=== PATIENT | male | born 1960 | race Caucasian/White ===

== ENCOUNTER 2018-02-10 20:16 | Emergency (ER) | payer BC, SELFPAY ==
[2018-02-10 20:12] VITALS: BP 133/90; PULSE 81; RESP 16; TEMP 37; O2SAT 95
[2018-02-10 20:22] VITALS: RESP 18
--- NOTE | 2018-02-10 20:40 | ED.GENADUL_ITS ---
Discharge Plan Disposition Patient Disposition: HOME Condition: Good Discharge Details Chief Complaint: GenMedical Clinical Impression: Abdominal cramping, Vasovagal near syncope Reason For Visit: GEOFF Primary Care Provider: Verna Joshi ED Provider: Aidan Sweeney Meds and New Rx's Prescriptions: Continue bimatoprost 2.5 ML drops 1 drp OU DAILY Qty: 2.5 RF: 12 hydrochlorothiazide 25 MG tablet 25 mg PO DAILY Qty: 90 RF: 3 nabumetone 750 MG tablet 375 mg PO DAILY Qty: 180 RF: 3 Discharge Instructions Instructions: Near Syncope (ED) Additional Instructions: Would stick with liquid/bland diet for now. Near fainting probably related to vagal episode like we talked about. Follow up with PCP next week if not feeling better. Return to ED for chest pain, fainting, persistent abdominal pain, persistent vomiting, shortness of breath. Referrals: Verna Joshi, ENGINEERING OFFICER [Primary Care Provider] - Discharge Data Discharge Date/Time-TO BE ENTERED AT DEPARTURE: 02/10/18 21:49 Medical Decision Making Patient is asymptomatic in ED. Abdomen is benign and no further cramping. Suspect the lightheaded event was related to vagal episode. EKG without acute changes, left axis only. Patient observed in ED and given oral challenge with no recurrent symptoms. No chest pain or shortness of breath or syncope. Did not pursue imaging or labs. Discharged home. ECG Data Attestation: I personally reviewed and interpreted this ECG (s) as follows: Prior ECG tracings: not available for review Interpretation: Sinus rhythm at 90 with normal intervals but left axis. No ST changes. HPI General Mode of arrival: EMS . Date/Time Provider Initiated Documentation: 02/10/18 20:24 . Limitations to Documentation: no limitations . Information obtained by: patient . HPI Narrative: Patient presents to ED with near syncope. Patient has had a head cold with some congestion and sore throat, slight cough for couple of days but nothing major. Tonight after eating dinner he developed sharp intermittent cramping abdominal pain. He felt like he needed to have a BM and went to bathroom. He was unable to have BM and then developed some nausea and thought he was going to vomit. He became sweaty and lightheaded but did not pass out. His abdominal cramping has since resolved after about 30 minutes. He did not have chest pain/pressure and no shortness of breath. He currently feels back to normal for the most part other then the congestion in his head. Related Data Home Medications Medication Instructions Recorded Confirmed bimatoprost 1 drp OU DAILY #2.5 ml 03/09/17 02/10/18 hydrochlorothiazide 25 mg PO DAILY #90 tab-cap 09/12/17 02/10/18 nabumetone 375 mg PO DAILY #180 tab-cap 11/07/17 02/10/18 Previous Rx's Medication Instructions Recorded bimatoprost 1 drp OU DAILY #2.5 ml 03/09/17 hydrochlorothiazide 25 mg PO DAILY #90 tab-cap 09/12/17 nabumetone 375 mg PO DAILY #180 tab-cap 11/07/17 Allergies Allergy/AdvReac Type Severity Reaction Status Date / Time No Known Allergies Allergy Unverified 02/10/18 20:16 General Stated Complaint: GenMedical LEORA: 3 Review of Systems Constitutional Denies chills, Denies fatigue, Denies fever(s), Denies headache(s) and Denies malaise Eyes Denies eye discharge and Denies irritation ENT Denies dizziness, Denies otalgia, Denies headache(s), Reports nasal congestion, Denies neck pain, Reports sinus pressure and Reports sore throat Cardiovascular Denies chest pain, Reports diaphoresis, Denies syncope, Denies rapid heart rate , Denies pedal edema, Denies edema, Reports lightheadedness and Denies dyspnea Respiratory Reports cough and Denies dyspnea Gastrointestinal Denies constipation, Reports cramping, Denies diarrhea, Reports nausea and Denies vomiting Musculoskeletal Denies back pain, Denies myalgias, Denies arthralgias, Denies neck pain and Denies numbness Integumentary/Breasts Denies rash Neurologic Denies confusion, Denies dizziness, Denies syncope, Denies headache(s), Denies focal weakness and Denies numbness Psychiatric Denies confusion Endocrine Denies fatigue PFSH Family History Other Prostate CA Medical History HTN (hypertension) (Chronic) Social History Smoking/Tobacco Use Status: Never Surgical History Rotator Cuff Repair (~2007) Exam Const General: cooperative, healthy appearing, comfortable and no acute distress Orientation: alert and oriented x3 HENMT Head: normocephalic Mouth: moist mucous membranes Neck Neck: normal visual inspection, trachea midline and supple Resp Effort & Inspection: normal respiratory effort Auscultation: clear to auscultation bilaterally Cardio Rate: regular rate Rhythm: regular rhythm Heart Sounds: S1 normal and S2 normal Pulses: radial pulses present GI Palpation: soft, not firm, no guarding and nontender Skin General skin exam: no rashes or lesions noted Neuro General: alert, oriented x3, no focal motor deficits and CN's II-XI intact bilaterally Sensory Exam: no sensory deficits noted Extrem General: normal to inspection and full ROM Course Vital Signs Temperature 98.6 F 02/10/18 20:12 Pulse 81 02/10/18 20:12 Respiratory Rate 16 02/10/18 20:12 Blood Pressure 133/90 02/10/18 20:12 Pulse Oximetry 95 02/10/18 20:12 Temperature 98.6 F 02/10/18 20:12 Temperature Source Temporal Artery Scan 02/10/18 20:12 Pulse 81 02/10/18 20:12 Respiratory Rate 18 02/10/18 20:22 Respiratory Effort Non-Labored 02/10/18 20:22 Respiratory Depth Normal 02/10/18 20:22 Respiratory Pattern Normal 02/10/18 20:22 Blood Pressure 133/90 02/10/18 20:12 Blood Pressure Position Supine 02/10/18 20:12 Pulse Oximetry 95 02/10/18 20:12 Pain Level 0 02/10/18 20:12
[2018-02-10 21:27] VITALS: BP 120/72; PULSE 90; RESP 18; TEMP 36.5; O2SAT 97
== END 2018-02-10 21:49 | disposition home or self-care (01) ==
LOC: ER 21:53
PROVIDERS: Emergency Provider Emergency Medicine; PCP Nurse Practitioner
DX: R55 Syncope and collapse (principal); R10.9 Unspecified abdominal pain; I10 Essential (primary) hypertension
CPT/HCPCS: 93005; 99283; 93010

== ENCOUNTER 2019-02-05 07:27 | Outpatient (CLI) | payer BC, SELFPAY ==
[2019-02-05 08:59] LABS: ALT 31 U/L (16-63); AST 27 U/L (15-37); Albumin 3.9 g/dL (3.4-5.0); Alkaline Phosphatase 55 U/L (46-116); BUN 13 mg/dL (7-18); Bilirubin, Total 0.7 mg/dL (0.2-1.0); CREATININE 0.84 mg/dL (0.70-1.30); Calcium 9.1 mg/dL (8.5-10.1); Calculated LDL 119 mg/dL; Chloride 104 mmol/L (98-107); Cholesterol 180 mg/dL (50-200); Glucose 92 mg/dL (70-100); HDL Cholesterol 46 mg/dL (40-60); Potassium 4.1 mmol/L (3.5-5.1); Sodium 142 mmol/L (136-145); Triglyceride 75 mg/dL (30-150)
[2019-02-06 10:08] LABS: PSA, Screening 0.8 ng/ml (0-3.5)
== END 2019-02-05 07:47 ==
PROVIDERS: PCP Nurse Practitioner; Visit Provider Nurse Practitioner
DX: I10 Essential (primary) hypertension (principal); Z12.5 Encounter for screening for malignant neoplasm of prostate; Z80.42 Family history of malignant neoplasm of prostate
CPT/HCPCS: 36415; 80053; 80061; 84153

== ENCOUNTER 2020-02-13 01:33 | Outpatient (CLI) | payer BC, SELFPAY ==
[2020-02-13 08:21] LABS: ALT 30 U/L (16-63); AST 20 U/L (15-37); Alkaline Phosphatase 62 U/L (46-116); Anion Gap 4.7 mmol/L (3-11); BUN 14 mg/dL (7-18); Bilirubin, Total 0.5 mg/dL (0.2-1.0); CO2 33.3 mmol/L (21.0-32.0); CREATININE 0.88 mg/dL (0.70-1.30); Calcium 9.1 mg/dL (8.5-10.1); Calculated LDL 130 mg/dL (<100); Chloride 104 mmol/L (98-107); Cholesterol 193 mg/dL (<200); Glucose 94 mg/dL (74-106); HDL Cholesterol 48 mg/dL (40-60); Potassium 4.3 mmol/L (3.5-5.1); Sodium 142 mmol/L (136-145); Triglyceride 78 mg/dL (<150)
[2020-02-13 18:11] LABS: PSA, Screening 0.6 ng/mL (0.0-4.5)
== END 2020-02-13 01:53 ==
PROVIDERS: PCP Nurse Practitioner; Visit Provider Nurse Practitioner
DX: I10 Essential (primary) hypertension (principal); Z12.5 Encounter for screening for malignant neoplasm of prostate; Z80.42 Family history of malignant neoplasm of prostate
CPT/HCPCS: 36415; 80053; 80061; 84153

== ENCOUNTER 2020-09-14 17:28 | Emergency (ER) | payer BC, SELFPAY ==
[2020-09-14 17:37] VITALS: BP 139/101; PULSE 82; RESP 16; TEMP 36.7; O2SAT 96
--- NOTE | 2020-09-14 17:49 | ED.GENADUL_ITS ---
Discharge Plan Disposition Patient Disposition: HOME Condition: Stable Discharge Details Clinical Impression: Laceration of hand, left Primary Care Provider: Verna Joshi ED Provider: Anthony Velazquez Home Meds and New Rx's Prescriptions: Continued mometasone 0.1 % cream 1 applic TP DAILY PRN (Reason: skin irritation) Qty: 15 RF: 1 cyclobenzaprine 10 mg tablet 10 mg PO HS PRN (Reason: muscle spasm) Qty: 30 RF: 0 methylprednisolone [Medrol (Rigo)] 4 mg tablets,dose pack See Rx Instructions .Route .COMPLEX Qty: 21 RF: 0 bimatoprost 2.5 ML drops 1 drp OU DAILY Qty: 2.5 RF: 12 betamethasone, augmented [Diprolene (augmented)] 0.05 % ointment 1 applic TP QHS RF: 0 fluocinolone [Synalar] 0.01 % solution 1 applic TP BID RF: 0 mometasone [Elocon] 0.1 % cream 1 applic TP DAILY RF: 0 hydrochlorothiazide 25 mg tablet 25 mg PO DAILY Qty: 90 RF: 3 nabumetone 750 mg tablet 375 mg PO DAILY Qty: 180 RF: 3 Discharge Instructions Instructions: Laceration (ED) Additional Instructions: return in 7-10 days for suture removal and sooner if signs of infection such as spreading redness or yellow/white discharge Medical Decision Making 60 yo male was trying to take the front bucket off his tractor and his left hand got stuck between it and a pole, no falls or other trauma. Has no pain but has a 1cm laceration on anterior and posterior hand just proximal to the thumb. Full range of motion of the finger with normal sensation and pulses and no bony tenderness. No palpable foreign bodies and given no significant pain do not feel xray indicated as chance of foreign body with mechanism is low and no indication for fracture. Will place sutures and likely discharge 2 sutures placed in both wounds after copious irrigation without compliation, will d/c home Differential Diagnosis Differential Diagnosis: laceration, abrasion, contusion HPI General Mode of arrival: ambulatory . Date/Time Provider Initiated Documentation: 09/14/20 17:31 . Limitations to Documentation: no limitations . Information obtained by: patient . History of Present Illness 60 year old M presents to the emergency department with the chief complaint of left hand laceration, described as moderate, Quality is described as aching, Patient started experiencing this hour(s) (1) and it has been constant. No relieving factors improve symptom(s), No exacerbating factors reported . Patient notes no other symptoms.. Patient did receive the following treatments prior to arrival, none Related Data Home Medications Medication Instructions Recorded Confirmed bimatoprost 1 drp OU DAILY #2.5 ml 03/09/17 09/14/20 mometasone 0.1 % topical cream 1 applic TP DAILY PRN #15 gm 10/15/18 09/14/20 betamethasone, augmented 0.05 % 1 applic TP QHS 01/28/19 09/14/20 topical ointment fluocinolone 0.01 % topical 1 applic TP BID 01/28/19 09/14/20 solution mometasone 0.1 % topical cream 1 applic TP DAILY 01/28/19 09/14/20 hydrochlorothiazide 25 mg tablet 25 mg PO DAILY #90 tab-cap 11/01/19 09/14/20 nabumetone 750 mg tablet 375 mg PO DAILY #180 tab-cap 12/17/19 09/14/20 cyclobenzaprine 10 mg tablet 10 mg PO HS PRN #30 tab 09/10/20 09/14/20 methylprednisolone 4 mg tablets in See Rx Instructions .ROUTE 09/10/20 09/14/20 a dose pack .COMPLEX #21 dose pk Previous Rx's Medication Instructions Recorded bimatoprost 1 drp OU DAILY #2.5 ml 03/09/17 mometasone 0.1 % topical cream 1 applic TP DAILY PRN #15 gm 10/15/18 hydrochlorothiazide 25 mg tablet 25 mg PO DAILY #90 tab-cap 11/01/19 nabumetone 750 mg tablet 375 mg PO DAILY #180 tab-cap 12/17/19 cyclobenzaprine 10 mg tablet 10 mg PO HS PRN #30 tab 09/10/20 methylprednisolone 4 mg tablets in See Rx Instructions .ROUTE 09/10/20 a dose pack .COMPLEX #21 dose pk Allergies Allergy/AdvReac Type Severity Reaction Status Date / Time No Known Allergies Allergy Verified 09/14/20 17:36 General Stated Complaint: Laceration LEORA: 4 Review of Systems All systems reviewed & are unremarkable except as noted in HPI and below Constitutional Constitutional: Denies chills, Denies fever(s) and Denies weakness Cardiovascular Cardiovascular: Denies chest pain and Denies dyspnea Respiratory Respiratory: Denies cough and Denies dyspnea Gastrointestinal Gastrointestinal: Denies abdominal pain, Denies nausea and Denies vomiting Musculoskeletal Musculoskeletal: Denies joint swelling Neurologic Neurologic: Denies weakness [facility] Medical History (Updated 09/14/20 @ 18:10 by Anthony Velazquez MD) Elevated PSA (~2012) Surgical History (Updated 11/06/19 @ 15:48 by Kassidy Phelps) S/P rotator cuff repair (~2007) Family History (Updated 01/10/19 @ 08:27 by Tea Wahl RN) Father Prostate cancer Hypertension Brother Prostate cancer Paternal Grandfather Alcohol abuse Mother Breast cancer Social History (Updated 01/10/19 @ 08:29 by Tea Wahl RN) Smoking/Tobacco Use Status: Never Smoking risk assessment performed?: Yes Alcohol Intake: never Drug use: Never Adopted: No Household members: spouse Number of Children: 0 Communication Needs: Corrective Lenses Do you need help understanding health information?: Rarely Pets and animals: Yes Do you think of yourself as: straight/heterosexual What is your relationship status?: Panel score (0-1 are the most socially isolated patients): 1 What type of physical activity do you participate in: none Seatbelt use: always Helmet use: Yes Drive intox or ride w/intox mobile lounge driver: No Water heater temp set <120 deg: Yes Working smoke detector in home: Yes Fire extinguisher in home: Yes Carbon monox detector in home: Yes Firearms in home: Yes Firearms unloaded and locked: Yes Do you feel safe at home: Yes Do you feel safe in your relationship?: Yes Victim of physical abuse: No Victim of emotional abuse: No Victim of sexual abuse: No Exam Const General: no acute distress Orientation: alert HENMT Head: normal to inspection Ears: external ears normal General nose exam: external nose normal Mouth: moist mucous membranes Eyes General: appearance normal, both eyes and all related structures Neck Neck: normal visual inspection Resp Effort & Inspection: normal respiratory effort and able to speak in complete sentences Cardio Rate: regular rate Skin General skin exam: no rashes or lesions noted Neuro General: patient alert and patient oriented x3 Extrem General: full ROM and capillary refill normal Psych Mental Status: mental status grossly normal Course Vital Signs Vital signs: Vital Signs Temperature 36.7 C 09/14/20 17:37 Pulse 82 09/14/20 17:37 Respiratory Rate 16 09/14/20 17:37 Blood Pressure 139/101 H 09/14/20 17:37 Pulse Oximetry 96 09/14/20 17:37 Temperature 36.7 C 09/14/20 17:37 Temperature Source Temporal Artery Scan 09/14/20 17:37 Pulse 82 09/14/20 17:37 Respiratory Rate 16 09/14/20 17:37 Respiratory Effort Non-Labored 09/14/20 17:40 Blood Pressure 139/101 H 09/14/20 17:37 Blood Pressure Position Sitting 09/14/20 17:37 Pulse Oximetry 96 09/14/20 17:37 Oxygen Delivery Method Room Air 09/14/20 17:37 Oxygen Flow Rate 0 09/14/20 17:37 Pain Level 3 09/14/20 17:43 Procedures Laceration Laceration 1: Site: hand Side (If applicable): left Size (cm): 1 Description: linear Depth: simple, single layer Local Anesthetic: Lidocaine 2% Amount of anesthesia used (mL): 3 Pre-repair: wound explored and irrigated extensively Skin layer closed with: nylon Size (cm): 5-0 Number of sutures: 2 Technique: simple, interrupted Laceration 2: Site: hand Side (If applicable): left Size (cm): 1 Description: linear Depth: simple, single layer Local Anesthetic: Lidocaine 2% Amount of anesthesia used (mL): 2 Pre-repair: wound explored and irrigated extensively Skin layer closed with: nylon Size (cm): 5-0 Number of sutures: 2 Technique: simple, interrupted
== END 2020-09-14 18:24 | disposition home or self-care (01) ==
PROVIDERS: Emergency Provider Emergency Medicine; PCP Nurse Practitioner
DX: S67.22XA Crushing injury of left hand, initial encounter (principal); S61.412A Laceration without foreign body of left hand, initial encounter; W23.1XXA Caught, crushed, jammed, or pinched between stationary objects, initial encounter
CPT/HCPCS: 12001; 90471

== ENCOUNTER 2020-09-17 01:25 | Outpatient (CLI) | payer BC, SELFPAY ==
--- NOTE | 2020-09-17 07:15 | DI.RAD_ITS ---
Exam(s) XR CERVICAL SPINE COMP 4-5V EXAM: XR CERVICAL SPINE COMP 4-5V CLINICAL HISTORY: Pain right posterior neck approx 3-4 mos,MUSCLE SPASM,M62.838,M54.2. TECHNIQUE: 2D digital imaging was performed. COMPARISON: No exams were available for comparison FINDINGS: There is no evidence of fracture, listhesis, nor offset of the spinal laminar line. There is moderat e disc space narrowing at C4-5, C5-6, and C6-7 levels. Calcification is noted in the supraspinous li gament at C 7-T1 level. Mild facet arthropathy changes noted, most evident at C2-3 level. No cervic al ribs. Vascular calcification the carotid arteries on both sides of neck noted. IMPRESSION: Degenerative disc disease. If clinically indicated follow-up MRI can be performed. Vascular calcification in the carotid arteries noted, indicating atherosclerotic involvement. DATA REPOSITORY: RADIATION DOSE DELIVERED:
== END 2020-09-17 01:45 ==
PROVIDERS: PCP Nurse Practitioner; Visit Provider Nurse Practitioner
DX: M54.2 Cervicalgia (principal); M62.838 Other muscle spasm; M50.321 Other cervical disc degeneration at C4-C5 level; M50.322 Other cervical disc degeneration at C5-C6 level; M50.323 Other cervical disc degeneration at C6-C7 level
CPT/HCPCS: 72050

== ENCOUNTER 2020-12-26 14:32 | Emergency (ER) | payer BC, SELFPAY ==
[2020-12-26] VITALS (23 sets, daily range): BP systolic 127–165; BP diastolic 75–103; PULSE 74–100; RESP 7–22; TEMP 36.6; O2SAT 94–98
--- NOTE | 2020-12-26 14:15 | RT.EKG_ITS ---
APPROVED REPORT Exam: Resting ECG Reason for Exam: dizzy,nausea Patient Location: E HR:88 bpm ECG Measurements Heart Rate 88 AXIS WI 165 P 12 QRSd 92 QRS -31 QT 373 T 67 QTc 451 Conclusion Sinus rhythm...normal P axis, V-rate 60- 99 Nonspecific T abnormalities, lateral leads...T <-0.10mV, I aVL V5 V6 Physician: no stemi or significant st elevations or depressions
--- NOTE | 2020-12-26 14:40 | ED.GENADUL_ITS ---
Discharge Plan Disposition Patient Disposition: HOME Condition: Stable Discharge Details Clinical Impression: Vertigo Primary Care Provider: Verna Joshi ED Provider: Rosie Martines Home Meds and New Rx's Prescriptions: New meclizine 25 mg tablet 25 mg PO TID PRN (Reason: dizziness) Qty: 20 RF: 0 No Action mometasone 0.1 % cream 1 applic TP DAILY PRN (Reason: skin irritation) Qty: 15 RF: 1 cyclobenzaprine 10 mg tablet 10 mg PO HS PRN (Reason: muscle spasm) Qty: 30 RF: 0 methylprednisolone [Medrol (Rigo)] 4 mg tablets,dose pack See Rx Instructions .Route .COMPLEX Qty: 21 RF: 0 bimatoprost 2.5 ML drops 1 drp OU DAILY Qty: 2.5 RF: 12 betamethasone, augmented [Diprolene (augmented)] 0.05 % ointment 1 applic TP QHS RF: 0 fluocinolone [Synalar] 0.01 % solution 1 applic TP BID RF: 0 mometasone [Elocon] 0.1 % cream 1 applic TP DAILY RF: 0 hydrochlorothiazide 25 mg tablet 25 mg PO DAILY Qty: 90 RF: 3 nabumetone 750 mg tablet 375 mg PO DAILY Qty: 45 RF: 0 Discharge Instructions Instructions: Vertigo (ED) Additional Instructions: Take the meclizine up to 3 times daily as needed for dizziness and the nausea medication as needed. Take the nausea medication 20 minutes before meals also up to 3 times daily. The lab test today are reassuring and are within normal limits. Follow up with primary care provider in 3-5 days. Return to ED sooner if any worsening or concerns. Increase oral fluids. Referrals: Verna Joshi NP [Primary Care Provider] - 3 days Discharge Data Discharge Date/Time-TO BE ENTERED AT DEPARTURE: 12/26/20 18:50 Medical Decision Making <AGUS Kwon - Last Filed: 12/27/20 09:54> Patient is a pleasant 60-year-old male presenting today with chief complaint of dizziness, nausea and vomiting. He reports that when walking his dog this morning he had a sudden onset of the room spinning and vomiting. Since that time, he has had a similar experience whenever trying to move, particular when trying to sit up. He denies any headache. Denies fevers or chills. Denies any chest pain or shortness of breath. He has not had episodes like this historically. However, patient does not suffer from tinnitus chronically. He states that he has a family history of vertigo. He reports that his brother has had a history of AR. Past medical history pertinent for carotid atherosclerosis, sensorineural hearing loss, tinnitus, hypertension. On exam, patient appears nontoxic. Vital signs are stable. He does not have any notable nystagmus. No nuchal rigidity. Normal cardiac exam. Lungs are clear. 2+ distal pulses. Neuro exam is intact. Head impulse test does show occasional loss of traction but this does not appear to be bidirectional. I appreciate any evidence to suggest a CVA. His history is most consistent with vertigo. However, he is also describing this as occasional lightheadedness. Also considered potential cardiac source of his etiology. EKG was obtained and reviewed by Dr. Mendez. Patient presented with a rate of 88. Nonspecific T wave abnormalities noted. No acute ischemic Patient given meclizine and Zofran. Ambulated about the department he reports that his dizziness has much improved. Currently hungry. We will see the patient continue to monitor. Labs reviewed. No leukocytosis. Stable H&H. Potassium slightly low at 3.3. Magnesium slightly low at 1.7. Troponin within normal limits. Thyroid within normal limits. Patient does not appear to be mildly dehydrated. Patient eating in department, feeling improved. Patient's is going home, we will keep updated. Lorrie [phone]. At the end of my shift, care transition to Anu Martines. Plan for repeat troponin and continued monitoring. Again, his history is most suggestive of a peripheral source, likely benign positional vertigo which appears to be improving at this time. Patient however, I do feel that out of abundance of caution repeat troponin should be obtained <Rosie Martines - Last Filed: 12/26/20 19:06> 1619: Care assumed from provider (AGUS Cuellar) Please see their initial HPI, PE, and documentation. Discussed patient details and case and pending workup and disposition. Patient is hemodynamically stable, and alert and oriented. At this time we are awaiting a second troponin. Spoke with patient's Lorrie and discussed plan of care for second troponin she verbalized understanding we will call her after results. Second troponin within normal limits. Discussed results with patient plan for discharge home with follow-up with PCP and strict return instructions discussed. Patient was given meclizine and Zofran to go home with. Patient was ambulatory up to bathroom with no difficulties. Patient states he feels much better than when he arrived. This text was generated using [employer] dictation system, please disregard any oddities of phrase or misspellings. HPI <AGUS Kwon - Last Filed: 12/27/20 09:54> General Mode of arrival: ambulatory . Date/Time Provider Initiated Documentation: 12/26/20 14:40 . Limitations to Documentation: no limitations . Information obtained by: patient, family () and RN notes reviewed . History of Present Illness 60 year old M presents to the emergency department with the chief complaint of room spinning, vomiting, generalized weak/fatigue, described as severe, Quality is described as other (not endorsing any pain), and is localized to the head. Patient started experiencing this hour(s) (0700) and it has been intermittent. Immobilization improves symptom(s), Movement worsens symptoms . Patient notes no other symptoms., loss of appetite, nausea/vomiting and weakness; denies chest pain, cough, fever/chills, rash and shortness of breath. Patient did receive the following treatments prior to arrival, none Related Data Home Medications Medication Instructions Recorded Confirmed bimatoprost 1 drp OU DAILY #2.5 ml 03/09/17 12/26/20 mometasone 0.1 % topical cream 1 applic TP DAILY PRN #15 gm 10/15/18 09/14/20 betamethasone, augmented 0.05 % 1 applic TP QHS 01/28/19 09/14/20 topical ointment fluocinolone 0.01 % topical 1 applic TP BID 01/28/19 12/26/20 solution mometasone 0.1 % topical cream 1 applic TP DAILY 01/28/19 09/14/20 cyclobenzaprine 10 mg tablet 10 mg PO HS PRN #30 tab 09/10/20 09/14/20 methylprednisolone 4 mg tablets in See Rx Instructions .ROUTE 09/10/20 09/14/20 a dose pack .COMPLEX #21 dose pk hydrochlorothiazide 25 mg tablet 25 mg PO DAILY #90 tab-cap 11/11/20 12/26/20 nabumetone 750 mg tablet 375 mg PO DAILY #45 tab-cap 12/21/20 12/26/20 meclizine 25 mg PO TID PRN #20 tab 12/26/20 Previous Rx's Medication Instructions Recorded bimatoprost 1 drp OU DAILY #2.5 ml 03/09/17 mometasone 0.1 % topical cream 1 applic TP DAILY PRN #15 gm 10/15/18 cyclobenzaprine 10 mg tablet 10 mg PO HS PRN #30 tab 09/10/20 methylprednisolone 4 mg tablets in See Rx Instructions .ROUTE 09/10/20 a dose pack .COMPLEX #21 dose pk hydrochlorothiazide 25 mg tablet 25 mg PO DAILY #90 tab-cap 11/11/20 nabumetone 750 mg tablet 375 mg PO DAILY #45 tab-cap 12/21/20 meclizine 25 mg PO TID PRN #20 tab 12/26/20 Allergies Allergy/AdvReac Type Severity Reaction Status Date / Time No Known Allergies Allergy Verified 12/26/20 14:39 General Stated Complaint: Dizzy/Sync LEORA: 2 Review of Systems <AGUS Kwon - Last Filed: 12/27/20 09:54> Constitutional Constitutional: Reports as per HPI, Denies chills, Reports fatigue, Denies fever(s), Denies headache(s) and Reports lethargy Eyes Eyes: Denies change in vision ENT Ears, Nose, Mouth, and Throat: Reports vertigo, Reports dizziness and Denies headache(s) Cardiovascular Cardiovascular: Reports as per HPI, Denies chest pain, Denies chest pain at rest, Denies chest pain with activity, Denies syncope, Reports lightheadedness, Denies dyspnea and Denies dyspnea on exertion Respiratory Respiratory: Reports as per HPI, Denies chest congestion, Denies cough, Denies pain on inspiration, Denies pain with cough, Denies dyspnea and Denies dyspnea on exertion Gastrointestinal Gastrointestinal: Reports as per HPI, Denies abdominal pain, Denies diarrhea, Reports nausea and Reports vomiting Genitourinary Genitourinary: Denies system reviewed and no additional complaints, except as documented (denies change in urinary habits) Musculoskeletal Musculoskeletal: Reports as per HPI and Denies back pain Integumentary/Breasts Skin/Breast: Reports as per HPI and Denies rash Neurologic Neurologic: Reports as per HPI, Reports vertigo, Reports dizziness, Denies syncope and Denies headache(s) Endocrine Endocrine: Reports fatigue PFSH <AGUS Kwon - Last Filed: 12/27/20 09:54> Medical History Carotid atherosclerosis Elevated PSA (~2012) Surgical History S/P rotator cuff repair (~2007) Family History (Updated 01/10/19 @ 08:27 by Tea Wahl RN) Father Prostate cancer Hypertension Brother Prostate cancer Paternal Grandfather Alcohol abuse Mother Breast cancer Social History Smoking/Tobacco Use Status: Never Smoking risk assessment performed?: Yes Alcohol Intake: never Drug use: Never Adopted: No Household members: spouse Number of Children: 0 Communication Needs: Corrective Lenses Do you need help understanding health information?: Rarely Pets and animals: Yes Do you think of yourself as: straight/heterosexual What is your relationship status?: Panel score (0-1 are the most socially isolated patients): 1 What type of physical activity do you participate in: none Seatbelt use: always Helmet use: Yes 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 Water heater temp set <120 deg: Yes Working smoke detector in home: Yes Fire extinguisher in home: Yes Carbon monox detector in home: Yes Firearms in home: Yes Firearms unloaded and locked: Yes Do you feel safe at home: Yes Do you feel safe in your relationship?: Yes Victim of physical abuse: No Victim of emotional abuse: No Victim of sexual abuse: No Exam <AGUS Kwon - Last Filed: 12/27/20 09:54> Const General: cooperative, uncomfortable, no acute distress, well developed and ill appearing acutely Nutritional Appearance: average body habitus and well nourished Orientation: alert, awake and oriented x3 HENMT Head: normal to inspection Ears: hearing grossly normal bilaterally and external ears normal Face and sinus: normal facial exam Mouth: moist mucous membranes Eyes General: appearance normal, both eyes and all related structures Visual Hope: normal visual hope by confrontation Alignment and Position: alignment normal Conjunctivae: conjunctivae normal Pupils: PERRL EOM: EOM intact bilaterally and No nystagmus Chest Chest: normal inspection of the chest, normal palpation of entire chest wall and no crepitus Resp Effort & Inspection: normal respiratory effort, able to speak in complete senten heidi and no respiratory distress Auscultation: clear to auscultation bilaterally, no rales, no rhonchi and no wheezes Cardio Rate: regular rate Rhythm: regular rhythm Heart Sounds: S1 normal and S2 normal GI Inspection: normal to inspection, no edema and non-distended Palpation: soft, no hepatosplenomegaly, not firm, no guarding, not rigid and nontender Auscultation: normal bowel sounds Skin General skin exam: no rashes or lesions noted Trauma: no lacerations or abrasions Neuro General: patient alert, patient awake and patient oriented x3 Cranial Nerves: no nystagmus Cognition: normal cognition Speech: speech normal Gait: normal gait Extrem General: normal to inspection, capillary refill normal, no pedal edema, no calf tenderness and normal gait Psych Appearance: grossly normal and well kempt Mental Status: mental status grossly normal Speech and Movement: speech and movement normal Course <AGUS Kwon - Last Filed: 12/27/20 09:54> Vital Signs Vital signs: Vital Signs Temperature 36.6 C 12/26/20 14:34 Pulse 85 12/26/20 14:34 Respiratory Rate 14 12/26/20 14:34 Blood Pressure 138/99 H 12/26/20 14:34 Pulse Oximetry 97 12/26/20 14:34 Temperature 36.6 C 12/26/20 14:34 Temperature Source Temporal Artery Scan 12/26/20 14:34 Pulse 85 12/26/20 14:34 Respiratory Rate 14 12/26/20 14:34 Respiratory Effort 12/26/20 14:38 Blood Pressure 138/99 H 12/26/20 14:34 Blood Pressure Position Supine 12/26/20 14:34 Pulse Oximetry 97 12/26/20 14:34 Oxygen Delivery Method Room Air 12/26/20 14:34 Oxygen Flow Rate 0 12/26/20 14:34 Pain Level 0 12/26/20 14:34 Sign Out <AGUS Kwon - Last Filed: 12/27/20 09:54> Sign Out Data: Sign Out Comment: Care transitioned to Rosie Martines NP with repeat troponin pending. Patient dizzy and lightheaded. Last updated by Anali Mendoza PA at 12/26/20 15:56
[2020-12-26] MEDS: Meclizine 25 MG TAB PO ×2 (14:49→18:40)
[2020-12-26 15:03] LABS: Bilirubin Negative (Negative); Blood Negative (Negative); Clarity Clear (Clear); Glucose Negative (Negative); Ketones 80 mg/dL (Negative); Leukocyte Esterase Negative (Negative); Nitrite Negative (Negative); Urobilinogen 0.2 EU/dL (Up TO 0.2); pH 8.5 (5-8)
[2020-12-26] MEDS: Normal Saline 1,000 ML 1000 ML IV ×2 (15:05→16:02)
[2020-12-26] MEDS: Ondansetron 4 MG/2 ML VIAL IVP (15:06)
[2020-12-26 15:10] LABS: HCT 49.3 % (40.0-50.0); MCH 29.7 pg (27.0-33.0); MCHC 34.5 % (32.0-36.0); MCV 86.2 fL (80-95); RBC 5.72 10^6/uL (4.36-5.78); RDW-SD 38.5 fL; WBC 7.62 10^3/uL (4.4-10.8)
[2020-12-26 15:11] LABS: Abs Immature Grans 0.02 10^3/uL (0.0-0.06); Absolute Basophil Count 0.03 10^3/uL (0.0-0.2); Absolute Eosinophil Count 0.01 10^3/uL (0.0-0.7); Absolute Lymphocyte Count 0.93 10^3/uL (1.2-3.4); Absolute Monocyte Count 0.34 10^3/uL (0.1-0.8); Absolute Neutrophil Count 6.29 10^3/uL (1.2-6.7); Basophils % 0.4; Eosinophils % 0.1; Immature Grans % 0.3; Lymphocytes % 12.2; MPV 11.1 fL (8.0-11.0); Monocytes % 4.5; Neutrophils % 82.5; Nucleated RBC 0 %; Platelet Count 210 10^3/uL (130-400); RDW 12.1 % (11.8-14.1)
[2020-12-26 15:12] LABS: Bacteria Few HPF (Negative); C & S Indicated? No; Casts Negative LPF (Negative); Crystals Negative HPF (Negative); Epithelial Cells Negative HPF (Negative); Mucus Heavy (Negative); RBC 0-2 HPF (0-2); WBC 0-2 HPF (0-5)
[2020-12-26 15:25] LABS: ALT 22 U/L (16-63); AST 18 U/L (15-37); Albumin 3.8 g/dL (3.4-5.0); Alkaline Phosphatase 44 U/L (46-116); Anion Gap 9.8 mmol/L (3-11); BUN 19 mg/dL (7-18); Bilirubin, Total 0.8 mg/dL (0.2-1.0); CO2 26.2 mmol/L (21.0-32.0); CREATININE 0.9 mg/dL (0.70-1.30); Calcium 9.1 mg/dL (8.5-10.1); Chloride 104 mmol/L (98-107); Glucose 124 mg/dL (74-106); Magnesium 1.7 mg/dL (1.8-2.4); Potassium 3.3 mmol/L (3.5-5.1); Sodium 140 mmol/L (136-145); TSH 0.71 uIU/mL (0.36-3.74); Total Protein 7.1 g/dL (6.4-8.2)
[2020-12-26 15:26] LABS: Troponin I < 0.05 ng/mL (<0.06)
[2020-12-26 18:11] LABS: Troponin I < 0.05 ng/mL (<0.06)
[2020-12-26] MEDS: Ondansetron O.D.T. 4 MG TABEF, 3 TABS/BTL PO (18:42)
== END 2020-12-26 18:50 | disposition home or self-care (01) ==
PROVIDERS: Physician Assistant; Emergency Provider Registered Nurse Emergency; PCP Nurse Practitioner
DX: R42 Dizziness and giddiness (principal); R11.2 Nausea with vomiting, unspecified
CPT/HCPCS: 80053; 93005; 96361; 96374; 99284; 81003; 81015; 83735; 84443; 84484; 85025; 93010; J2405

== ENCOUNTER 2021-02-14 15:22 | Emergency (ER) | payer BC, SELFPAY ==
[2021-02-14] VITALS (57 sets, daily range): BP systolic 79–138; BP diastolic 40–91; PULSE 71–101; RESP 14–21; TEMP 36.5; O2SAT 95–100
--- NOTE | 2021-02-14 15:15 | RT.EKG_ITS ---
APPROVED REPORT Exam: Resting ECG Reason for Exam: allergic reaction Patient Location: E HR:89 bpm ECG Measurements Heart Rate 89 AXIS AL 196 P 35 QRSd 97 QRS -30 QT 395 T 45 QTc 482 Conclusion Sinus rhythm...normal P axis, V-rate 60- 99
[2021-02-14] MEDS: EPINEPHrine 0.3 MG KIT IM (15:25)
[2021-02-14] MEDS: Normal Saline 1,000 ML 1000 ML IV (15:30)
[2021-02-14] MEDS: methylPREDNISolone SUCC 125 MG VIAL (15:33)
[2021-02-14] MEDS: methylPREDNISolone SUCC 125 MG VIAL IVP (15:33)
[2021-02-14] MEDS: diphenhydrAMINE 50 MG/ML VIAL IVP (15:33)
[2021-02-14] MEDS: FAMOTIDINE 20 MG/50 ML BAG 200 MG IVPB (15:35)
[2021-02-14] MEDS: Lactated Ringers 500 ML IV (16:05)
--- NOTE | 2021-02-14 18:32 | ED.GENADUL_ITS ---
Discharge Plan Disposition Patient Disposition: HOME Condition: Stable Discharge Details Clinical Impression: Bee sting-induced anaphylaxis Primary Care Provider: Verna Joshi ED Provider: Mau Alonso Home Meds and New Rx's Prescriptions: New prednisone 20 mg tablet 40 mg PO DAILY 4 Days Qty: 8 RF: 0 epinephrine [EpiPen 2-Rigo] 0.3 mg/0.3 mL auto-injector 0.3 mg IM ONCE PRN (Reason: anaphylaxis) Qty: 2 RF: 0 Continued mometasone 0.1 % cream 1 applic TP DAILY PRN (Reason: skin irritation) Qty: 15 RF: 1 cyclobenzaprine 10 mg tablet 10 mg PO HS PRN (Reason: muscle spasm) Qty: 30 RF: 0 bimatoprost 2.5 ML drops 1 drp OU DAILY Qty: 2.5 RF: 12 betamethasone, augmented [Diprolene (augmented)] 0.05 % ointment 1 applic TP QHS RF: 0 fluocinolone [Synalar] 0.01 % solution 1 applic TP BID RF: 0 mometasone [Elocon] 0.1 % cream 1 applic TP DAILY RF: 0 hydrochlorothiazide 25 mg tablet 25 mg PO DAILY Qty: 90 RF: 3 nabumetone 750 mg tablet 375 mg PO DAILY Qty: 45 RF: 0 meclizine 25 mg tablet 25 mg PO TID PRN (Reason: dizziness) Qty: 20 RF: 0 Discharge Instructions Instructions: Anaphylaxis (ED) Additional Instructions: Please avoid potential exposures to bees and wasps. Take Benadryl 25 mg by mouth every 8 hours for the next 3 days. Take prednisone as prescribed. Please contact your primary care physician to arrange follow-up. Return to the ER for any worsening or new concerning symptoms. Medical Decision Making 60-year-old male patient stung by 30 honeybees and having anaphylactic reaction. Patient hypotensive with lip swelling and difficulty breathing. Patient in critical condition on arrival. Patient given epinephrine IM immediately on arrival, IV was established patient was given IV fluid bolus, Benadryl 50 mg IV, Solu-Medrol 125 mg IV, pepcid 20mg IV. Multiple 10+ bee sting orders were removed from the patient neck. --Patient improved with medication. Hemodynamically stable. 1829 -- Patient reassessed and much improved. Rash nearly resolved, swelling resolved, hemodynamically stable. 1930 --patient reassessed and continues to remain stable. Plan for discharge with to continue to monitor. Patient understands he should return immediately for any return of symptoms. Disposition decision was made weighing the risks and benefits of hospitalization versus outpatient treatment, the risk for further decompensation, and the patient's wishes. The patient was stable and requested discharge. Prior to discharge, my usual and customary return precautions were reviewed with the patient - this included follow-up instructions and reason to return to the emergency department if condition worsens, does not improve as expected, or other new concerns arise. EpiPen was prescribed. Patient was prescribed prednisone. Patient was instructed to take Benadryl. HPI General Mode of arrival: ambulatory . Date/Time Provider Initiated Documentation: 02/14/21 15:27 . Limitations to Documentation: altered mental status . Information obtained by: patient and family . HPI Narrative: 50-year-old male presents with chief complaint of multiple bee stings. Patient notes he was tending to his honeybees and some bees got understood and stung him. He estimates he was stung 20-30 times. Patient was stung in his neck. He then developed dizziness and full body rash with swelling of his lips. He has shortness of breath. Symptoms are severe. No modifiers. No associated chest pain. Related Data Home Medications Medication Instructions Recorded Confirmed bimatoprost 1 drp OU DAILY #2.5 ml 03/09/17 02/14/21 mometasone 0.1 % topical cream 1 applic TP DAILY PRN #15 gm 10/15/18 02/14/21 betamethasone, augmented 0.05 % 1 applic TP QHS 01/28/19 02/14/21 topical ointment fluocinolone 0.01 % topical 1 applic TP BID 01/28/19 02/14/21 solution mometasone 0.1 % topical cream 1 applic TP DAILY 01/28/19 02/14/21 cyclobenzaprine 10 mg tablet 10 mg PO HS PRN #30 tab 09/10/20 02/14/21 hydrochlorothiazide 25 mg tablet 25 mg PO DAILY #90 tab-cap 11/11/20 02/14/21 nabumetone 750 mg tablet 375 mg PO DAILY #45 tab-cap 12/21/20 02/14/21 meclizine 25 mg PO TID PRN #20 tab 12/26/20 02/14/21 epinephrine [EpiPen 2-Rigo] 0.3 mg IM ONCE PRN #2 ea 02/14/21 prednisone 40 mg PO DAILY 4 Days #8 tab 02/14/21 Previous Rx's Medication Instructions Recorded bimatoprost 1 drp OU DAILY #2.5 ml 03/09/17 mometasone 0.1 % topical cream 1 applic TP DAILY PRN #15 gm 10/15/18 cyclobenzaprine 10 mg tablet 10 mg PO HS PRN #30 tab 09/10/20 hydrochlorothiazide 25 mg tablet 25 mg PO DAILY #90 tab-cap 11/11/20 nabumetone 750 mg tablet 375 mg PO DAILY #45 tab-cap 12/21/20 meclizine 25 mg PO TID PRN #20 tab 12/26/20 epinephrine [EpiPen 2-Rigo] 0.3 mg IM ONCE PRN #2 ea 02/14/21 prednisone 40 mg PO DAILY 4 Days #8 tab 02/14/21 Allergies Allergy/AdvReac Type Severity Reaction Status Date / Time bee venom protein (honey bee) Allergy Severe Unverified 02/14/21 15:35 General Stated Complaint: Allergic LEORA: 1 Review of Systems Unobtainable due to (Review of systems limited secondary to acuity of condition, see HPI) Constitutional Constitutional: Denies fever(s) Integumentary/Breasts Skin/Breast: Reports rash [facility] Medical History Carotid atherosclerosis Elevated PSA (~2012) Surgical History S/P rotator cuff repair (~2007) Family History (Updated 01/10/19 @ 08:27 by Tea Wahl RN) Father Prostate cancer Hypertension Brother Prostate cancer Paternal Grandfather Alcohol abuse Mother Breast cancer Social History Smoking/Tobacco Use Status: Never Smoking risk assessment performed?: Yes Alcohol Intake: never Drug use: Never Adopted: No Household members: spouse Number of Children: 0 Communication Needs: Corrective Lenses Do you need help understanding health information?: Rarely Pets and animals: Yes Do you think of yourself as: straight/heterosexual What is your relationship status?: Panel score (0-1 are the most socially isolated patients): 1 What type of physical activity do you participate in: none Seatbelt use: always Helmet use: Yes 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 Water heater temp set <120 deg: Yes Working smoke detector in home: Yes Fire extinguisher in home: Yes Carbon monox detector in home: Yes Firearms in home: Yes Firearms unloaded and locked: Yes Do you feel safe at home: Yes Do you feel safe in your relationship?: Yes Victim of physical abuse: No Victim of emotional abuse: No Victim of sexual abuse: No Exam Const General: cooperative and uncomfortable HENMT Head: normocephalic Mouth: moist mucous membranes Throat: posterior oropharynx normal Other: Lip swelling Eyes Sclera: normal sclerae Neck Neck: trachea midline and supple Resp Auscultation: no rales, no rhonchi and wheezes expiratory wheezes (Subtle) Cardio Jugular venous pressure: no JVD Rate: tachycardic Rhythm: regular rhythm Heart Sounds: S1 normal, S2 normal and no murmurs GI Palpation: soft, not firm, no guarding, no masses, not rigid and nontender Skin Rashes: rashes noted (Diffuse urticarial rash whole body) Neuro General: patient alert, patient awake and tone normal Extrem General: no edema Psych Appearance: grossly normal Speech and Movement: speech and movement normal Course Vital Signs Vital signs: Vital Signs Pulse 79 02/14/21 15:28 Respiratory Rate 20 02/14/21 15:28 Blood Pressure 79/40 L 02/14/21 15:28 Pulse Oximetry 96 02/14/21 15:28 Pulse 79 02/14/21 15:28 Respiratory Rate 20 02/14/21 15:28 Respiratory Effort Non-Labored 02/14/21 15:50 Respiratory Pattern Normal 02/14/21 15:50 Blood Pressure 79/40 L 02/14/21 15:28 Blood Pressure Position Supine 02/14/21 15:28 Pulse Oximetry 96 02/14/21 15:28 Oxygen Delivery Method Room Air 02/14/21 15:28 Oxygen Flow Rate 0 02/14/21 15:28 Critical Care Time Critical Care Time Critical Care Time: Yes Total Critical Care Time: 45 Attestation: I spent greater than 45 minutes addressing this patient's immediate life threats. Please see MDM section of note. This time was spent engaged in work directly related to the patient's care, exclusive of separate procedures, and failure to initiate these interventions would have likely resulted in clinically significant or life threatening deterioration in the patient's condition.
== END 2021-02-14 19:56 | disposition home or self-care (01) ==
PROVIDERS: Emergency Provider Student in an Organized Health Care Education/Training Program; PCP Nurse Practitioner
DX: T63.441A Toxic effect of venom of bees, accidental (unintentional), initial encounter (principal); T78.2XXA Anaphylactic shock, unspecified, initial encounter; T78.3XXA Angioneurotic edema, initial encounter; I95.2 Hypotension due to drugs; R06.02 Shortness of breath; R42 Dizziness and giddiness
CPT/HCPCS: 93005; 96361; 96365; 96366; 96372; 96375; 99291; 93010; J0171; J1200; J2930

== ENCOUNTER 2021-11-23 15:22 | Outpatient (CLI) | payer BC, SELFPAY ==
--- NOTE | 2021-11-23 14:45 | DI.RAD_ITS ---
Exam(s) XR SHOULDER LT COMPLETE 2+V EXAM: XR SHOULDER LT COMPLETE 2+V CLINICAL HISTORY: L shoulder pain. TECHNIQUE: 2D digital imaging was performed. COMPARISON: No exams were available for comparison FINDINGS: Two views There is severe advanced [id number] narrowing of the glenohumeral joint space. Also large osteophyte on the inferior articular surface of the humeral head. Subacromial space is di minished, probably indicating rotator cuff pathology. 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 DATA REPOSITORY: RADIATION DOSE DELIVERED:
== END 2021-11-23 15:23 | disposition home or self-care (01) ==
LOC: DIORS 15:22
PROVIDERS: PCP Nurse Practitioner; Referring Provider Nurse Practitioner; Visit Provider Physician Assistant
DX: M19.012 Primary osteoarthritis, left shoulder (principal)
CPT/HCPCS: 73030

== ENCOUNTER 2021-12-08 03:11 | Outpatient (CLI) | payer BC, SELFPAY ==
[2021-12-08 07:52] LABS: ALT 24 U/L (16-63); AST 22 U/L (15-37); Albumin 3.7 g/dL (3.4-5.0); Alkaline Phosphatase 42 U/L (46-116); Anion Gap 6.2 mmol/L (3-11); BUN 16 mg/dL (7-18); Bilirubin, Total 0.7 mg/dL (0.2-1.0); CO2 29.8 mmol/L (21.0-32.0); CREATININE 0.9 mg/dL (0.70-1.30); Calcium 8.9 mg/dL (8.5-10.1); Calculated LDL 120 mg/dL (<100); Chloride 103 mmol/L (98-107); Cholesterol 178 mg/dL (<200); Glucose 97 mg/dL (74-106); HDL Cholesterol 46 mg/dL (40-60); Potassium 3.7 mmol/L (3.5-5.1); Sodium 139 mmol/L (136-145); Triglyceride 64 mg/dL (<150)
[2021-12-08 18:52] LABS: PSA, Screening 0.6 ng/mL (<=4.5)
== END 2021-12-08 03:12 | disposition home or self-care (01) ==
LOC: LBO 03:11
PROVIDERS: PCP Nurse Practitioner; Visit Provider Nurse Practitioner
DX: E78.5 Hyperlipidemia, unspecified (principal); I10 Essential (primary) hypertension; Z12.5 Encounter for screening for malignant neoplasm of prostate; Z80.42 Family history of malignant neoplasm of prostate
CPT/HCPCS: 36415; 80053; 80061; 84153

== ENCOUNTER 2023-01-04 21:26 | Emergency (ER) | payer BC, SELFPAY ==
[2023-01-04 21:29] VITALS: BP 132/91; PULSE 74; RESP 20; TEMP 37; O2SAT 99
--- NOTE | 2023-01-04 21:32 | ED.GENADUL_ITS ---
Discharge Plan Disposition Patient Disposition: Home Discharge Details Clinical Impression: Laceration of right hand Primary Care Provider: Verna Joshi ED Provider: Thad Thompson Home Meds and New Rx's Prescriptions: Continued cyclobenzaprine 10 mg tablet 10 mg PO HS PRN (Reason: muscle spasm) Qty: 30 0RF hydrochlorothiazide 25 mg tablet 25 mg PO DAILY Qty: 90 3RF nabumetone 750 mg tablet See Rx Instructions .ROUTE .COMPLEX Qty: 45 0RF Dose Instruction: Take 1/2 (one-half) tablet by mouth once daily Rx Instructions: Take 1/2 (one-half) tablet by mouth once daily epinephrine [EpiPen 2-Rigo] 0.3 mg/0.3 mL auto-injector 0.3 mg IM ONCE PRN (Reason: anaphylaxis) Qty: 2 12RF Rx Instructions: as a single dose fluocinolone 0.01 % solution 1 applic topical BID Qty: 60 3RF bimatoprost 2.5 ML drops 1 drp OU DAILY Qty: 2.5 12RF Discharge Instructions Instructions: Laceration (ED) Additional Instructions: Please read all of the information that accompanies these instructions. You were seen in the emergency department for your laceration which was closed with 2 nonabsorbable sutures which need to be removed in 7 to 10 days: sometime between January 11 and Saturday, January 14, 2023. Your tetanus was updated in September 2020 so it was not updated today. Please schedule an appointment with your primary care provider next week as needed. Please return to the emergency department if develop streaking signs of infection fevers or any foul-smelling drainage from your wound. Please do not swim while your sutures are in place. For your pain please take medications as follows: 1. Take acetaminophen (Tylenol), 1,000 mg (two 500 mg tabs) every 6 hours 2. Take ibuprofen (Advil), 400 mg every 8 hours. Medical Decision Making This is an overall very well-appearing normothermic and not tachycardic [id number] 62-year-old male with relatively superficial right hand laceration that is hemostatic. Tetanus updated within the last 3 years so we will defer repeat tetanus. Laceration does not violate the subcutaneous tissue so following extensive irrigation and wound exploration wound was closed at bedside with topical analgesia. Patient tolerated primary closure well. We discussed return indications including any streaking signs of infection follow-up purulent drainage and any fevers. I advised outpatient PCP follow-up, ED return or urgent care visit for suture removal in 7 to 10 days. We discussed avoiding swimming while the patient had his sutures in place. Following primary closure laceration was bandaged by nursing. Patient was discharged with strict return indications. HPI General Date/Time Provider Initiated Documentation: 01/04/23 21:32 . HPI Narrative: This is a [id number] 62-year-old male arriving to the emergency department in the setting of a laceration he sustained just prior to arrival to the dorsal surface of his right hand between the thumb and index fingers. He reported that he pinched his right hand in a screen door. He denies routine ethanol and illicits. He had his tetanus updated approximately 3 years ago. He did not take any oral analgesia prior to arrival. He did not irrigate his wound prior to arrival. He denies any other injuries. He did not lose consciousness. He did not hit his head. Related Data Home Medications Medication Instructions Recorded Confirmed bimatoprost 0.03 % eye drops 1 drp OU DAILY #2.5 mL 03/09/17 01/04/23 cyclobenzaprine 10 mg tablet 10 mg PO HS PRN muscle spasm #30 09/10/20 01/04/23 tabs epinephrine 0.3 mg/0.3 mL 0.3 mg (0.3 mL) IM ONCE PRN 09/29/22 01/04/23 injection, auto-injector (EpiPen anaphylaxis #2 ea 2-Rigo) fluocinolone 0.01 % topical 1 applic topical BID ear 09/29/22 01/04/23 solution dermatitis #60 mL hydrochlorothiazide 25 mg tablet 25 mg PO DAILY #90 tab-caps 09/29/22 01/04/23 nabumetone 750 mg tablet See Rx Instructions .Route 09/29/22 01/04/23 .COMPLEX #45 tabs Previous Rx's Medication Instructions Recorded bimatoprost 0.03 % eye drops 1 drp OU DAILY #2.5 mL 03/09/17 cyclobenzaprine 10 mg tablet 10 mg PO HS PRN muscle spasm #30 09/10/20 tabs epinephrine 0.3 mg/0.3 mL 0.3 mg (0.3 mL) IM ONCE PRN 09/29/22 injection, auto-injector (EpiPen anaphylaxis #2 ea 2-Rigo) fluocinolone 0.01 % topical 1 applic topical BID ear 09/29/22 solution dermatitis #60 mL hydrochlorothiazide 25 mg tablet 25 mg PO DAILY #90 tab-caps 09/29/22 nabumetone 750 mg tablet See Rx Instructions .Route 09/29/22 .COMPLEX #45 tabs Allergies Allergy/AdvReac Type Severity Reaction Status Date / Time bee venom protein (honey bee) Allergy Severe Verified 01/04/23 21:33 General LEORA: 1 PFSH All Active Problems (Updated 01/04/23 @ 21:33 by Thad Thompson MD) Laceration of right hand (Acute) Primary osteoarthritis, left shoulder (Acute) 03/15/22 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 Shana Rodrigez MD Seborrheic dermatitis (Acute) [facility] 01/24/19. Shana Rodrigez MD Irritant contact dermatitis (Acute) [facility] 01/24/19. Shana Rodrigez MD Routine medical exam (Acute) Allergic rhinitis (Acute 11/15/11) Glaucoma of both eyes (Acute 03/09/17) Low back pain (Acute 11/15/11) Other and unspecified hyperlipidemia (Acute 08/22/12) PCEq risk 5.8% Sensorineural hearing loss, bilateral (Acute 09/08/16) Tinnitus, bilateral (Acute 09/08/16) Unspecified essential hypertension (Acute 08/22/12) FRS 18% Medical History Carotid atherosclerosis Elevated PSA (~2012) Surgical History S/P rotator cuff repair (~2007) Family History (Updated 01/10/19 @ 08:27 by Tea Wahl RN) Father Prostate cancer Hypertension Brother Prostate cancer Paternal Grandfather Alcohol abuse Mother Breast cancer Social History (Updated 09/29/22 @ 15:34 by Cori May LPN) Smoking/Tobacco Use Status: Never Smoking risk assessment performed?: Yes Alcohol Intake: never Details: Declines to answer Drug use: Never Details: Declines to answer Household members: spouse Number of Children: 0 Communication Needs: None current occupation: [employer] Pets and animals: Yes Current gender identity: male Other: Declines to answer What is your relationship status?: Panel score (0-1 are the most socially isolated patients): 1 What type of physical activity do you participate in: none Seatbelt use: always Drive intox or ride w/intox milk pickup driver: No Water heater temp set <120 deg: Yes Working smoke detector in home: Yes Fire extinguisher in home: Yes Carbon monox detector in home: Yes Firearms in home: Yes Firearms unloaded and locked: Yes Do you feel safe at home: Yes Do you feel safe in your relationship?: Yes Victim of physical abuse: No Victim of emotional abuse: No Victim of sexual abuse: No Exam Narrative Exam Narrative: General: Well-appearing in no acute distress speaking in complete sentences. Head: Normocephalic, atraumatic. Eye: Extraocular eye movements intact. No conjunctival injection. No scleral icterus. Ear, nose, mouth, throat: Grossly normal inspection. Normal voice, handling secretions normally. Neck: Trachea midline. Cardiovascular: Well-perfused distal extremities. Respiratory: Nonlabored respiration. Gastrointestinal: Nondistended abdomen. Musculoskeletal: On the dorsal surface of the right hand just proximal to the webspace between the thumb and right index finger there is an approximately 1 cm hemostatic laceration that violates the subcutaneous tissue. No obvious foreign bodies. Laceration rinsed extensively in the sink by nursing prior to primary closure. Sensation and motor function intact in the right hand across the radian, medial, and ulnar nerve distributions. 2+ right radial pulse. Cap refill less than 2 seconds in the right fingertips. Skin: Normal for age and race, grossly normal temperature and turgor. No acute rash. Neurologic: Alert and appropriate, no apparent acute deficits. Psychiatric: Mood and manner are appropriate. Grooming and personal hygiene are appropriate. Procedures Laceration Laceration 1: Site: hand Side (If applicable): right Size (cm): 1 Description: linear Depth: simple, single layer Local Anesthetic: Lidocaine 1% Amount of anesthesia used (mL): 4 Skin layer closed with: nylon Size (cm): 5-0 and other (Prolene) Number of sutures: 2 Technique: simple, interrupted
[2023-01-04] MEDS: Acetaminophen 500 MG TAB 1000 MG PO (21:47)
[2023-01-04] MEDS: Ibuprofen 400 MG TAB PO (21:47)
== END 2023-01-04 22:00 | disposition home or self-care (01) ==
PROVIDERS: Emergency Provider Emergency Medicine; PCP Nurse Practitioner
DX: S61.411A Laceration without foreign body of right hand, initial encounter (principal); W23.1XXA Caught, crushed, jammed, or pinched between stationary objects, initial encounter
CPT/HCPCS: 99282; 99284

== ENCOUNTER 2023-02-10 02:21 | Outpatient (CLI) | payer BC, SELFPAY ==
[2023-02-10 07:42] LABS: ALT 28 U/L (16-63); AST 21 U/L (15-37); Albumin 3.7 g/dL (3.4-5.0); Alkaline Phosphatase 59 U/L (46-116); Anion Gap 3.4 mmol/L (3-11); BUN 19 mg/dL (7-18); Bilirubin, Total 0.6 mg/dL (0.2-1.0); CO2 31.6 mmol/L (21.0-32.0); CREATININE 0.9 mg/dL (0.70-1.30); Calcium 9.2 mg/dL (8.5-10.1); Calculated LDL 123 mg/dL (<100); Chloride 103 mmol/L (98-107); Cholesterol 181 mg/dL (<200); Estimated GFR 95.97 (mL/min/1.73m2); Glucose 97 mg/dL (74-106); HDL Cholesterol 49 mg/dL (40-60); Potassium 3.9 mmol/L (3.5-5.1); Sodium 138 mmol/L (136-145); Triglyceride 48 mg/dL (<150)
[2023-02-10 20:09] LABS: PSA, Screening 0.6 ng/mL (<=4.5)
== END 2023-02-10 02:22 | disposition home or self-care (01) ==
LOC: LBO 02:21
PROVIDERS: PCP Nurse Practitioner; Visit Provider Nurse Practitioner
DX: E78.5 Hyperlipidemia, unspecified (principal); Z80.42 Family history of malignant neoplasm of prostate; Z87.898 Personal history of other specified conditions; Z12.5 Encounter for screening for malignant neoplasm of prostate
CPT/HCPCS: 36415; 80053; 80061; 84153

== ENCOUNTER 2023-11-01 01:52 | Outpatient (CLI) | payer BC, SELFPAY ==
[2023-11-01 07:51] LABS: Abs Immature Grans 0.02 10^3/uL (0.0-0.06); Absolute Basophil Count 0.04 10^3/uL (0.0-0.2); Absolute Eosinophil Count 0.21 10^3/uL (0.0-0.7); Absolute Lymphocyte Count 1.89 10^3/uL (1.2-3.4); Absolute Monocyte Count 0.63 10^3/uL (0.1-0.8); Absolute Neutrophil Count 3.21 10^3/uL (1.2-6.7); Basophils % 0.7 %; Eosinophils % 3.5 %; HCT 51.3 % (40.0-50.0); HGB 17.5 g/dL (13.5-17.5); Immature Grans % 0.3 %; Lymphocytes % 31.5 %; MCH 30.3 pg (27.0-33.0); MCHC 34.1 % (32.0-36.0); MCV 89 fL (80-95); MPV 11.2 fL (8.0-11.0); Monocytes % 10.5 %; Neutrophils % 53.5 %; Platelet Count 222 10^3/uL (130-400); RBC 5.78 10^6/uL (4.36-5.78); RDW 12.5 % (11.8-14.1); RDW-SD 41.1 fL
[2023-11-01 08:08] LABS: ALT 41 U/L (16-63); AST 26 U/L (15-37); Albumin 3.8 g/dL (3.4-5.0); Alkaline Phosphatase 53 U/L (46-116); Anion Gap 7.5 mmol/L (3-11); BUN 15 mg/dL (7-18); Bilirubin, Total 0.78 mg/dL (0.2-1.0); CO2 31.5 mmol/L (21.0-32.0); CREATININE 0.9 mg/dL (0.70-1.30); Calcium 9.3 mg/dL (8.5-10.1); Calculated LDL 120 mg/dL (<100); Chloride 104 mmol/L (98-107); Cholesterol 180 mg/dL (<200); Estimated GFR 95.37 (mL/min/1.73m2); Glucose 93 mg/dL (74-106); HDL Cholesterol 48 mg/dL (40-60); Potassium 4.1 mmol/L (3.5-5.1); Sodium 143 mmol/L (136-145); Total Protein 7.2 g/dL (6.4-8.2); Triglyceride 63 mg/dL (<150)
[2023-11-01 20:02] LABS: PSA, Screening 0.8 ng/mL (<=4.5)
== END 2023-11-01 01:53 | disposition home or self-care (01) ==
LOC: LBO 01:52
PROVIDERS: Absent Provider Nurse Practitioner; PCP Nurse Practitioner; Referring Provider Nurse Practitioner; Visit Provider Nurse Practitioner
DX: Z12.5 Encounter for screening for malignant neoplasm of prostate (principal); Z80.42 Family history of malignant neoplasm of prostate; I10 Essential (primary) hypertension; E78.5 Hyperlipidemia, unspecified
CPT/HCPCS: 36415; 80053; 80061; 84153; 85025

== ENCOUNTER 2024-10-01 02:20 | Outpatient (CLI) | payer BC, SELFPAY ==
[2024-10-01 07:34] LABS: Abs Immature Grans 0.01 10^3/uL (0.0-0.06); Absolute Basophil Count 0.03 10^3/uL (0.0-0.2); Absolute Eosinophil Count 0.16 10^3/uL (0.0-0.7); Absolute Lymphocyte Count 1.69 10^3/uL (1.2-3.4); Absolute Neutrophil Count 2.16 10^3/uL (1.2-6.7); Basophils % 0.7 %; Eosinophils % 3.5 %; HCT 51.2 % (40.0-50.0); HGB 17.2 g/dL (13.5-17.5); Immature Grans % 0.2 %; Lymphocytes % 37.1 %; MCH 28.8 pg (27.0-33.0); MCHC 33.6 % (32.0-36.0); MCV 86 fL (80-95); MPV 10.4 fL (8.0-11.0); Neutrophils % 47.5 %; Platelet Count 184 10^3/uL (130-400); RBC 5.98 10^6/uL (4.36-5.78); RDW 12.6 % (11.8-14.1); RDW-SD 39.1 fL; WBC 4.55 10^3/uL (4.4-10.8)
[2024-10-01 19:30] LABS: PSA, Screening 0.9 ng/mL (<=4.5)
[2024-10-02 15:48] LABS: Ferritin 56 ng/mL (26-388)
== END 2024-10-01 02:21 | disposition home or self-care (01) ==
LOC: LBO 02:20
PROVIDERS: PCP Nurse Practitioner; Visit Provider Nurse Practitioner Gerontology
DX: R71.8 Other abnormality of red blood cells (principal); Z80.42 Family history of malignant neoplasm of prostate
CPT/HCPCS: 36415; 84153; 82728; 85025

== ENCOUNTER 2024-10-16 05:09 | Outpatient (CLI) | payer BC, SELFPAY ==
[2024-10-18 10:13] LABS: Erythropoietin 6.4 mIU/mL (2.6 - 18.5)
== END 2024-10-16 05:10 | disposition home or self-care (01) ==
LOC: LBO 05:09
PROVIDERS: Absent Provider Family Medicine; PCP Nurse Practitioner; Referring Provider Family Medicine; Visit Provider Family Medicine
DX: D75.1 Secondary polycythemia (principal)
CPT/HCPCS: 36415; 82668